=== PATIENT | female | born 1940 | race African-American/Black ===

== ENCOUNTER → 2017-02-03 | Outpatient (CLI) | payer MEDICARE ==
[~2017-02-03] MED LIST: ACETAMINOPHEN650 M1 PO; ALBUTEROL17 GM INH; ALDACTONE; ALDACTONE25 MG PO; AMARYL PO; APRESOLINE PO; ASPIRIN PO; ASPIRIN81 M1 PO; ASPIRIN81 M2 PO; ATIVAN0.5 MG PO; B COMPLEX1 CA1 PO; BACTRIM DS TABL1 TAB; BYSTOLIC5 MG PO; CALAN; CARVEDILOL25 MG PO; CHLOROTHIAZIDE; CHLOROTHIAZIDE500 MG PO; CLARITIN10 MG PO; COREG6.25 MG PO; COUMADIN; COUMADIN PO; COUMADIN3 MG PO; COUMADIN6 MG PO; CRESTOR PO; DELTASONE20 MG PO; DOXYCYCLINE; DULCOLAX5 MG PO; ECOTRIN325 MG PO; ESCITALOPRAM OX10 MG PO; FERROUS SULFATE PO; FISH OIL 1,0001 CAP PO; FLAX SEED OIL1000 M1 PO; FLOMAX0.4 M1 PO; FUROSEMIDE40 MG PO; GABAPENTIN100 M1 PO; GLUCOPHAGE XR500 MG; GLUCOPHAGE500 M1 PO; GLUMETZA1000 MG/BO PO; HCTZ PO; HUMULIN 70/30 V10 ML SUBQ; HUMULIN 70100 UNIT/1 SQ; HUMULIN 70100 UNIT/1 SUBQ; HYDRALAZINE HCL25 MG PO; HYDROCHLOROTHIA25 MG PO; HYDROCHLOROTHIAZIDE PO; IMDUR-ER60 MG PO; IRON325 ( 65 ) PO; IRON325 ( 652 PO; KEPPRA500 M2 PO; KEPPRA500 MG PO; LASIX PO; LEVAQUIN750 MG PO; LEXAPRO PO; LISINOPRIL PO; LISINOPRIL20 MG PO; LOPRESSOR PO; LOVENOX; MEDROL4 MG/DOSE- PO; METFORMIN HCL500 M1 PO; METFORMIN PO; MICARDIS PO; MILK OF MAGNESIA PO; MINOXIDIL PO; MOBIC PO; MULTI-VITAMIN1 TAB PO; NAPROSYN500 MG PO; NAPROXEN PO; NIACIN PO; NORCO 5/325 TAB1 TAB PO; NORCO1 TAB 10/3 PO; NORVASC PO; NORVASC10 MG PO; NORVASC2.5 MG PO; NOVOLIN 70/30 V10 M1 SUBQ; NOVOLIN 70/30 V10 ML; NOVOLIN R100 UNITS/ INJ; OMEPRAZOLE40 MG PO; OMNICEF PO; PATIENT'S PHARMACY; PRAVACHOL PO; PRAVASTATIN SOD40 MG PO; PRILOSEC PO; PRINIVIL40 MG PO; PROTONIX PO; QUESTRAN POWDE378 GM PO; SENNA S TABLET1 TAB PO; SIMVASTATIN20 MG PO; SIMVASTATIN40 MG PO; SOD BICARBONATE PO; SODIUM BICARBO650 MG PO; VERAPAMIL HCL240 M2 PO; VICODIN; VICODIN 5-3001 EACH PO; VICODIN PO; VIT B-12 SUBQ; VITAMIN C500 M1 PO; VITAMIN C500 M5 PO; VITAMIN D PO; WELCHOL3.75 GM PO; ZESTRIL10 M1 PO; ZESTRIL40 MG PO; ZITHROMAX1 G/PKT PO; ZOCOR20 MG PO; [UNRECOGNIZED DRUG - OTHER] PO
[2017-02-03 10:14] LABS: HEMATOCRIT 33.7 % (35.0-45.0); HEMOGLOBIN 10.3 gm/dL (12.0-16.0); MEAN CELL VOLUME 76.6 FL (83-96); MEAN CORPUSCULAR HEMOGLOBIN 23.4 PG (28-34); MEAN CORPUSCULAR HGB CONC 30.6 g/dL (30-36); MEAN PLATELET VOLUME 9.9 FL (6.5-11.5); RED BLOOD COUNT 4.4 X10e (3.90-5.30); RED CELL DISTRIBUTION WIDTH 15.9 % (11.0-15.5); WHITE BLOOD COUNT 7.5 X10e3 (4.0-10.5)
[2017-02-03 10:34] LABS: BUN/CREATININE RATIO 21.66; CALCIUM SERUM 9.1 mg/dL (8.4-10.2); CREATININE SERUM 1.2 mg/dL (0.6-1.4); GLOM FILT RATE Estimated 56.5 mL/min (>60); POTASSIUM 3.9 mmol/L (3.5-5.1)
== END | disposition home or self-care (01) ==
LOC: CSSDAY 09:21
PROVIDERS: Internal Medicine Nephrology
DX: N18.3 Chronic kidney disease, stage 3 (moderate) (principal); D63.1 Anemia in chronic kidney disease; Z79.899 Other long term (current) drug therapy
CPT/HCPCS: 36415; 80048; 85027; 96372; J0881

== ENCOUNTER → 2017-02-17 | Outpatient (CLI) | payer MEDICARE ==
[2017-02-17 09:57] LABS: HEMATOCRIT 35.2 % (35.0-45.0); HEMOGLOBIN 10.8 gm/dL (12.0-16.0)
== END | disposition home or self-care (01) ==
LOC: CSSDAY 09:23
PROVIDERS: Internal Medicine Nephrology
DX: N18.3 Chronic kidney disease, stage 3 (moderate) (principal); D63.1 Anemia in chronic kidney disease; Z79.899 Other long term (current) drug therapy
CPT/HCPCS: 36415; 85014; 85018; 96372; J0881

== ENCOUNTER → 2017-03-03 | Outpatient (CLI) | payer MEDICARE ==
[2017-03-03 10:41] LABS: HEMATOCRIT 36.4 % (35.0-45.0); HEMOGLOBIN 11.3 gm/dL (12.0-16.0); MEAN CELL VOLUME 75.9 FL (83-96); MEAN CORPUSCULAR HEMOGLOBIN 23.6 PG (28-34); MEAN CORPUSCULAR HGB CONC 31.2 g/dL (30-36); MEAN PLATELET VOLUME 9.3 FL (6.5-11.5); RED BLOOD COUNT 4.79 X10e (3.90-5.30); RED CELL DISTRIBUTION WIDTH 16.5 % (11.0-15.5); WHITE BLOOD COUNT 6.4 X10e3 (4.0-10.5)
[2017-03-03 11:50] LABS: ALBUMIN SERUM 3.9 g/dL (3.5-5.0); BILIRUBIN,TOTAL 0.5 mg/dL (0.2-2.0); BUN/CREATININE RATIO 17.5; CALCIUM SERUM 9.6 mg/dL (8.4-10.2); CREATININE SERUM 1.2 mg/dL (0.6-1.4); GLOM FILT RATE Estimated 51.6 mL/min (>60); POTASSIUM 4.4 mmol/L (3.5-5.1); PROTEIN TOTAL SERUM 6.9 g/dL (6.0-8.3); URIC ACID 7.9 mg/dL (2.6-7.2)
[2017-03-06 09:17] LABS: CALCIUM (PTHINTACT) 9.4 mg/dL (8.6-10.4)
== END | disposition home or self-care (01) ==
LOC: CSSDAY 09:50
PROVIDERS: Internal Medicine Nephrology
DX: N18.3 Chronic kidney disease, stage 3 (moderate) (principal); D63.1 Anemia in chronic kidney disease; Z51.81 Encounter for therapeutic drug level monitoring; Z79.899 Other long term (current) drug therapy
CPT/HCPCS: 36415; 80053; 82310; 82728; 83540; 83550; 83970; 84100; 84550; 85027; J0881

== ENCOUNTER → 2017-03-14 | Day surgery (SDC) | payer MEDICARE ==
--- NOTE | ~2017-03-14 | OR ---
Unit #: [id number] #: [id number] Patient: MADISON SIDDIQI [id number] [address] [place], [place] [address] [id number] O MR#: [id number] NAME: MADISON SIDDIQI ROOM: Date of Procedure: 03/14/2017 Admission Date: 03/14/2017 Surgeon: Stanley England M.D. : 1940 Attending Physician: Stanley England M.D. Primary Care Physician: Gutierrez Douglas M.D. OPERATIVE REPORT PRIMARY CARE PHYSICIAN Gutierrez Douglas M.D. PREOPERATIVE DIAGNOSIS The patient has history of presence of blood in the stool. She therefore come for a colonoscopy. PROCEDURES PERFORMED Colonoscopy and biopsies. POSTOPERATIVE DIAGNOSES The patient had 2 sessile polyps, these were 3 to 5 mm each. Both were present in the cecum adjacent to appendiceal orifice and were removed using cold biopsy forceps. Rest of the examination up to cecum and terminal ileum was normal. The quality of the prep was excellent. RECOMMENDATIONS Follow up results of polyp histology and consider repeat examination of the colon in 5 years. SEDATION USED MAC. DESCRIPTION OF PROCEDURE Following detailed explanation of the potential risks and complications of a colonoscopy, namely perforation, bleeding, and complications related to sedation, the patient was brought to GI lab and laid in the left lateral decubitus position. A digital rectal examination was performed, which was normal. Lubricated tip of the Olympus video colonoscope was inserted through the anus and advanced under direct vision. The scope was advanced and passed up to sigmoid into descending colon. No diverticula were seen in this area. The scope tip was then navigated all the way up to cecum with visualization of the ileocecal valve and the appendiceal orifice. Preparation was excellent with good visualization and photodocumentation was obtained. Last several inches of the terminal ileum also visualized after intubation of the ileocecal valve and appeared normal. Successive segments of the colonic mucosa were examined upon withdrawal. The patient was noted to have 2 small diminutive sessile polyps in the cecum. Both were removed using cold biopsy forceps. No additional polyps noted. The patient did not have any diverticulosis nor any hemorrhoids. The scope was then withdrawn and the patient returned to the recovery area. She tolerated the procedure without any postprocedure complications. Unit #: [id number] #: [id number] Patient: MADISON SIDDIQI Dictated by... Renetta Pena/anila TD: 03/15/2017 01:49 JOB #: [id number] CC: Jaiden Wesley M.D. OPERATIVE REPORT Page 1 of 1 X Stanley England MD PROCEDURE OPERATIVE NOTE
== END | disposition home or self-care (01) ==
LOC: COPS 10:33
DX: D12.0 Benign neoplasm of cecum (principal); R19.5 Other fecal abnormalities
CPT/HCPCS: 82947; 88305; J0360; J2250

== ENCOUNTER → 2017-03-17 | Outpatient (CLI) | payer MEDICARE, BC ==
[2017-03-17 11:23] LABS: HEMATOCRIT 36.7 % (35.0-45.0); HEMOGLOBIN 11.1 gm/dL (12.0-16.0)
== END | disposition home or self-care (01) ==
LOC: CSSDAY 10:25
PROVIDERS: Internal Medicine Nephrology
DX: D63.1 Anemia in chronic kidney disease (principal); N18.3 Chronic kidney disease, stage 3 (moderate); Z51.81 Encounter for therapeutic drug level monitoring; Z79.899 Other long term (current) drug therapy
CPT/HCPCS: 36415; 85014; 85018; J0881

== ENCOUNTER → 2017-03-31 | Outpatient (CLI) | payer MEDICARE, BC ==
[2017-03-31 10:45] LABS: HEMATOCRIT 33.3 % (35.0-45.0); HEMOGLOBIN 10.5 gm/dL (12.0-16.0); MEAN CELL VOLUME 74.2 FL (83-96); MEAN CORPUSCULAR HEMOGLOBIN 23.3 PG (28-34); MEAN CORPUSCULAR HGB CONC 31.4 g/dL (30-36); MEAN PLATELET VOLUME 10.3 FL (6.5-11.5); RED BLOOD COUNT 4.49 X10e (3.90-5.30); RED CELL DISTRIBUTION WIDTH 15.4 % (11.0-15.5); WHITE BLOOD COUNT 6.9 X10e3 (4.0-10.5)
[2017-03-31 13:14] LABS: BUN/CREATININE RATIO 20.71; CALCIUM SERUM 9.1 mg/dL (8.4-10.2); CREATININE SERUM 1.4 mg/dL (0.6-1.4); GLOM FILT RATE Estimated 42.8 mL/min (>60); POTASSIUM 4.1 mmol/L (3.5-5.1)
== END | disposition home or self-care (01) ==
LOC: CLAB 10:00
PROVIDERS: Internal Medicine Nephrology
DX: N18.3 Chronic kidney disease, stage 3 (moderate) (principal); D63.1 Anemia in chronic kidney disease; Z79.899 Other long term (current) drug therapy
CPT/HCPCS: 36415; 80048; 85027; 96372; J0881

== ENCOUNTER → 2017-04-14 | Outpatient (CLI) | payer MEDICARE, BC ==
[2017-04-14 10:51] LABS: HEMATOCRIT 34.3 % (35.0-45.0); HEMOGLOBIN 10.6 gm/dL (12.0-16.0)
== END | disposition home or self-care (01) ==
LOC: CSSDAY 08:00
PROVIDERS: Internal Medicine Nephrology
DX: N18.3 Chronic kidney disease, stage 3 (moderate) (principal); D63.1 Anemia in chronic kidney disease; Z51.81 Encounter for therapeutic drug level monitoring; Z79.899 Other long term (current) drug therapy
CPT/HCPCS: 36415; 85014; 85018; 96372; J0881

== ENCOUNTER → 2017-05-01 | Outpatient (CLI) | payer MEDICARE, BC ==
[2017-05-01 11:01] LABS: HEMOGLOBIN 11.3 gm/dL (12.0-16.0); MEAN CELL VOLUME 76.3 FL (83-96); MEAN CORPUSCULAR HEMOGLOBIN 23.3 PG (28-34); MEAN CORPUSCULAR HGB CONC 30.6 g/dL (30-36); MEAN PLATELET VOLUME 9.7 FL (6.5-11.5); RED BLOOD COUNT 4.86 X10e (3.90-5.30); RED CELL DISTRIBUTION WIDTH 15.9 % (11.0-15.5); WHITE BLOOD COUNT 6.5 X10e3 (4.0-10.5)
== END | disposition home or self-care (01) ==
LOC: CSSDAY 04-29 10:30
PROVIDERS: Internal Medicine Nephrology
DX: N18.3 Chronic kidney disease, stage 3 (moderate) (principal); D63.1 Anemia in chronic kidney disease
CPT/HCPCS: 36415; 85027; J0881

== ENCOUNTER → 2017-05-15 | Outpatient (CLI) | payer MEDICARE, BC ==
[2017-05-15 11:14] LABS: HEMATOCRIT 35.7 % (35.0-45.0); HEMOGLOBIN 11.2 gm/dL (12.0-16.0); MEAN CORPUSCULAR HEMOGLOBIN 23.5 PG (28-34); MEAN CORPUSCULAR HGB CONC 31.4 g/dL (30-36); MEAN PLATELET VOLUME 10.4 FL (6.5-11.5); RED BLOOD COUNT 4.77 X10e (3.90-5.30)
[2017-05-15 11:35] LABS: BUN/CREATININE RATIO 15.45; CALCIUM SERUM 9.2 mg/dL (8.4-10.2); CREATININE SERUM 1.1 mg/dL (0.6-1.4); GLOM FILT RATE Estimated 57.3 mL/min (>60); POTASSIUM 3.7 mmol/L (3.5-5.1)
== END | disposition home or self-care (01) ==
LOC: CSSDAY 10:15
PROVIDERS: Internal Medicine Nephrology
DX: N18.2 Chronic kidney disease, stage 2 (mild) (principal); D63.1 Anemia in chronic kidney disease; Z51.81 Encounter for therapeutic drug level monitoring; Z79.899 Other long term (current) drug therapy
CPT/HCPCS: 36415; 80048; 85027; J0881

== ENCOUNTER → 2017-05-29 | Outpatient (CLI) | payer MEDICARE, BC ==
[2017-05-29 11:24] LABS: HEMATOCRIT 35.4 % (35.0-45.0); HEMOGLOBIN 10.8 gm/dL (12.0-16.0)
== END | disposition home or self-care (01) ==
LOC: CSSDAY 10:52
PROVIDERS: Internal Medicine Nephrology
DX: N18.3 Chronic kidney disease, stage 3 (moderate) (principal); D63.1 Anemia in chronic kidney disease; Z79.899 Other long term (current) drug therapy
CPT/HCPCS: 36415; 85014; 85018; 96372; J0881

== ENCOUNTER 2017-06-12 10:31 | Emergency (ER) | payer MEDICARE, BC ==
--- NOTE | ~2017-06-12 | EKG ---
PATIENT: MADISON SIDDIQI UNIT #: [id number] Ventricular Rate: 63 BPM Atrial Rate: 63 BPM P-R Interval: 156 ms QRS Duration: 92 ms Q-T Interval: 432 ms QTC Calculation(Bezet): 442 ms P [place]: 39 degrees Calculated R [place]: 16 degrees Calculated T [place]: -10 degrees Diagnosis Line: Normal sinus rhythm Diagnosis Line: T wave abnormality, consider inferior ischemia Diagnosis Line: Abnormal ECG Diagnosis Line: When compared with ECG of 15-SEP-2016 15:11, Diagnosis Line: No significant change was found Diagnosis Line: Confirmed by RICHAR BERG MD ([id number]) on 06/13/2017 Diagnosis Line: 10:54:02 AM INTERPRETING MD: MORENA SOUZA
--- NOTE | ~2017-06-12 | CT71 ---
[facility] A Service of [facility] RADIOLOGY TEXT RESULTS PATIENT: MADISON SIDDIQI LOCATION: [facility] : [birth year] UNIT #: [id number] AGE: [address]: Ochoa Johnson MD SEX: F ORDER DR: [id number] [facility] [address] [place], [place] [address] [id number] E MR#: [id number] Acc #: [id number] NAME: MADISON SIDDIQI : 1940 SEX: F STUDY DATE/TIME: 06/12/2017 11:27 UNIT: [facility] ROOM: STUDY DESCRIPTION: CT Head Wo Contrast Attending Physician: Bruce Johnson M.D. Ordering Physician: Ed William Culver M.D. Primary Care Physician: Gutierrez Douglas M.D. MEDICAL IMAGING REPORT This report is preliminary unless electronic signature is present EXAM CT head without contrast 06/12/2017. HISTORY Dizziness this a.m. COPD, stroke, diabetes, hypertension. TECHNIQUE CT head performed skull base through vertex without intravenous contrast. This CT exam was performed with one or more of the following radiation dose reduction techniques: automatic exposure control, adjustment of mA and/or kV according to patient size, and iterative reconstruction. COMPARISON 02/13/2015. FINDINGS Brainstem unremarkable. Cerebellum and cerebral hemispheres show normal dahl matter-white matter differentiation. No hemorrhage. No evidence of acute cortical ischemia. Periventricular and deep white matter tract probable sequelae of chronic microvascular ischemia. More pronounced than in 2015. Chronic lacunar infarcts in the left putamen, globus pallidus, and anterior limb, left internal capsule. There is a chronic-appearing right thalamic lacunar infarct. The right thalamic lacunar infarct has developed in the interval from 2014. There is no clearly acute basal ganglia abnormality. The ventricles, cisterns, and sulci show generalized enlargement, slightly more pronounced than in 2015 and consistent with mild to moderate generalized atrophy. Extensive cavernous carotid arterial calcifications. No intra- or extraaxial mass effect or abnormal intracranial fluid collection. The intraorbital soft tissues are unremarkable in their visualized extent. The visualized paranasal sinuses and mastoid air cells show minimal mucosal thickening, ethmoid and sphenoid sinuses. No indication of acute sinusitis. No acute bony abnormality. [facility] A Service of [facility] RADIOLOGY TEXT RESULTS PATIENT: MADISON SIDDIQI LOCATION: [facility] : 42 UNIT #: [id number] AGE: [address]: Ochoa Johnson MD SEX: F ORDER DR: IMPRESSION 1. No clearly acute abnormality is seen in the brain. If the patient has ongoing neurologic symptoms, consider follow up imaging, preferably with MRI, if the patient is a candidate. 2. Chronic changes include following: Periventricular and deep white matter tract probable sequelae of chronic microvascular ischemia. This has progressed in the interval from 2015. Left basal ganglia lacunar infarcts, as above, unchanged from 2015. There is a chronic-appearing right thalamic lacunar infarct, new compared to 2015. Mild to moderate generalized atrophy slightly progressed in the interval from prior study. Vascular calcifications. Dictated by... Celestino Ames M.D. THIS IS AN ELECTRONICALLY VERIFIED REPORT Celestino Ames M.D. at 06/13/2017 7:11 PM Lisa TD: 06/12/2017 13:58 JOB #: [id number] MEDICAL IMAGING REPORT Page 1 of 1 COPY
[~2017-06-12 10:31] MED LIST changes: -ALBUTEROL17 GM INH; -DELTASONE20 MG PO; -OMNICEF PO
[2017-06-12 11:29] LABS: BASOPHIL# 0.1 X10e3 (0-0.3); BASOPHIL% 0.7 % (0-2.5); EOSINOPHIL# 0.2 X10e3 (0-0.7); HEMATOCRIT 36.4 % (35.0-45.0); HEMOGLOBIN 11.3 gm/dL (12.0-16.0); LYMPHOCYTE# 1.6 X10e3 (1.0-3.5); LYMPHOCYTE% 18.9 % (17.0-45.0); MEAN CELL VOLUME 75.6 FL (83-96); MEAN CORPUSCULAR HEMOGLOBIN 23.4 PG (28-34); MEAN PLATELET VOLUME 9.2 FL (6.5-11.5); MONOCYTE# 0.6 X10e3 (0-1.0); MONOCYTE% 7.7 % (3.0-12.0); NEUTROPHIL# 5.8 X10e3 (1.5-7.1); NEUTROPHIL% 69.7 % (40-75); PLATELET COUNT 227 X10e3 (140-420); RED BLOOD COUNT 4.82 X10e (3.90-5.30); WHITE BLOOD COUNT 8.4 X10e3 (4.0-10.5)
[2017-06-12 11:31] LABS: DIFF IND NO
[2017-06-12 11:32] LABS: POC - CKMB <1.0 ng/mL (0.0-7.9); POC - TROPONIN <0.05 ng/mL (<=0.05)
[2017-06-12 11:42] LABS: INR 1.9; PARTIAL THROMBOPLASTIN TIME 33.9 SECONDS (23.5-31.3); PROTHROMBIN TIME (PATIENT) 20.6 SECONDS (10.0-11.7)
[2017-06-12 11:54] LABS: CALCIUM SERUM 8.9 mg/dL (8.4-10.2); GLOM FILT RATE Estimated 63.9 mL/min (>60); POTASSIUM 3.5 mmol/L (3.5-5.1)
== END 2017-06-12 15:15 | disposition home or self-care (01) ==
LOC: CED 10:31
PROVIDERS: Emergency Medicine
DX: I16.0 Hypertensive urgency (principal); J44.9 Chronic obstructive pulmonary disease, unspecified; G40.909 Epilepsy, unspecified, not intractable, without status epilepticus; F17.210 Nicotine dependence, cigarettes, uncomplicated; D64.9 Anemia, unspecified; Z88.0 Allergy status to penicillin; Z88.1 Allergy status to other antibiotic agents; Z88.5 Allergy status to narcotic agent; E11.9 Type 2 diabetes mellitus without complications
CPT/HCPCS: 36415; 70450; 80048; 80053; 82310; 82553; 82728; 82947; 83540; 83550; 83970; 84100; 84484; 84550; 85014; 85018; 85025; 85610; 85730; 93005; 96374; 99284; J0881

== ENCOUNTER 2017-07-30 16:58 | Inpatient (IN) | payer MEDICARE, BC ==
[~2017-07-30] VITALS: Ht 160 cm; Wt 79.8 kg
--- NOTE | ~2017-07-30 | CR72 ---
[facility] A Service of [facility] RADIOLOGY TEXT RESULTS PATIENT: MADISON SIDDIQI LOCATION: [place] [address] : [birth year] UNIT #: [id number] AGE: [address]: Alesia Thrasher MD SEX: F ORDER DR: [id number] [place] [address] [place], [place] [address] [id number] E MR#: [id number] Acc #: [id number] NAME: MADISON SIDDIQI : 1940 SEX: F STUDY DATE/TIME: 07/30/2017 19:31 UNIT: [facility] ROOM: STUDY DESCRIPTION: CR Chest Single View Portable Attending Physician: Mary Florian M.D. Referring Physician: Gutierrez Douglas M.D. Ordering Physician: Mary Florian M.D. Primary Care Physician: Gutierrez Douglas M.D. MEDICAL IMAGING REPORT This report is preliminary unless electronic signature is present EXAM AP portable chest. DATE 07/30/2017 HISTORY Cough and chest pain for 3 days. COMPARISON AP portable chest, 09/15/2016. FINDINGS Heart size is borderline enlarged but stable. Pulmonary vascular distribution is normal. No pleural effusion or pneumothorax. Clear lungs. IMPRESSION Stable borderline cardiac enlargement. No acute chest findings. No significant change compared to 09/15/2016. Dictated by... Dianna Veliz M.D. THIS IS AN ELECTRONICALLY VERIFIED REPORT Dianna Veliz M.D. at 07/31/2017 12:[address] [facility]/rosalie TD: 07/30/2017 22:30 JOB #: [id number] MEDICAL IMAGING REPORT [facility] A Service of [facility] RADIOLOGY TEXT RESULTS PATIENT: MADISON SIDDIQI LOCATION: [place] [address] : [birth year] UNIT #: [id number] AGE: [address]: Alesia Thrasher MD SEX: F ORDER DR: Page 1 of 1 COPY
--- NOTE | ~2017-07-30 | CR63 ---
[facility] A Service of [facility] & [facility] RADIOLOGY TEXT RESULTS PATIENT: MADISON SIDDIQI LOCATION: [facility] [id number] : [birth year] UNIT #: [id number] AGE: [address]: Alesia Thrasher MD SEX: F ORDER DR: [id number] [facility] [address] [facility]. [place], [place] [address] [id number] I MR#: [id number] Acc #: [id number] NAME: MADISON SIDDIQI : 1940 SEX: F STUDY DATE/TIME: 08/01/2017 10:04 UNIT: [facility] ROOM: 2 STUDY DESCRIPTION: CR Chest 2 View Attending Physician: Alesia Thrasher M.D. Referring Physician: Gutierrez Douglas M.D. Ordering Physician: Gogo Faulkner M.D. Primary Care Physician: Gutierrez Douglas M.D. MEDICAL IMAGING REPORT This report is preliminary unless electronic signature is present EXAM PA and lateral chest 08/01/2017 INDICATION Cough, chest pain for 5 days. COMPARISON 07/30/2017. FINDINGS A portable view of the chest was obtained. The heart size and vascularity are normal. The lungs are clear. The bones are unremarkable. IMPRESSION No active disease. Dictated by... Manuelito Srivastava M.D. THIS IS AN ELECTRONICALLY VERIFIED REPORT Manuelito Srivastava M.D. at 08/01/2017 1:25 PM MIGUEL ANGEL/kimberley TD: 08/01/2017 12:03 JOB #: [id number] MEDICAL IMAGING REPORT Page 1 of 1 COPY
--- NOTE | ~2017-07-30 | HP ---
Unit #: [id number] #: [id number] Patient: MADISON SIDDIQI [id number] [address] [place], [place] [address] [id number] I MR#: [id number] NAME: MADISON SIDDIQI ROOM: 46 Age: 77 Sex: F Admission Date: 07/30/2017 : 1940 Attending Physician: Gogo Faulkner M.D. Referring Physician: Gutierrez Douglas M.D. Primary Care Physician: Gutierrez Douglas M.D. HISTORY AND PHYSICAL CHIEF COMPLAINT Cough, community acquired pneumonia, acute on chronic kidney disease, accelerated hypertension. HISTORY This pleasant 77-year-old female with essential hypertension, chronically anticoagulated for PE, seizure disorder, chronic kidney disease, is admitted for community acquired pneumonia and COPD exacerbation. Patient states that she was well until four days prior to admission when she developed a deep cough productive of green sputum with increasing shortness of breath and wheezing. Has been diaphoretic with the above, with some upper pleuritic chest discomfort. She presented to this emergency department tonight with an O2 saturation of 93% on room air. She has diffuse wheezing on exam. Blood pressure is also noted to be quite elevated. Chest x-ray does not show an active infiltrate but the patient herself clinically has pneumonia. In the ER she was bolused with IV fluids for acute and chronic kidney disease. I am giving IV hydralazine for accelerated hypertension. She was also given Rocephin and Zithromax. PAST MEDICAL HISTORY 1. COPD and obstructive sleep apnea. 2. Pulmonary embolism, chronically anticoagulated. 3. Chronic kidney disease with a baseline creatinine about 1.[address] Rajput. 4. AODM. Patient states that she is diet controlled, she was taken off her insulin recently, although yesterday her Accu-Chek was 230 and she did take some extra insulin at home. 5. Essential hypertension. 6. Hyperlipidemia. 7. GERD. 8. Seizure disorder maintained on Keppra. 9. Previous CVA without residual weakness. 10. GI bleed secondary to AV malformation. 11. Peripheral vascular disease, status post right carotid endarterectomy. 12. Colonoscopy 03/2017, two polyps removed. 13. Knee surgery. 14. BTL. 15. Cardiac catheterization showing normal coronary arteries with ejection fraction of 60% 10/2013. 16. 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 17. Right carotid endarterectomy. Unit #: [id number] #: [id number] Patient: MADISON SIDDIQI ALLERGIES Penicillin. Morphine and Cipro are also on the patient's ER sheet, although I am unsure if she is really allergic to morphine and Cipro. HOME MEDICATIONS Uncertain. Family is to bring in list. I do have a discharge summary from August 2016, which makes mention of sodium bicarb, Flomax, Coumadin, Keppra, Lexapro, Pravachol, Bystolic, Welchol, Norvasc, Dulcolax, other bowel medicines, hydralazine, iron, aspirin, Lortab, Prilosec and B12. FAMILY HISTORY CVA, CAD. SOCIAL HISTORY The patient lives with her daughter. She stopped smoking 35 years ago. Does not drink alcohol. REVIEW OF SYSTEMS Notable for shortness of breath, bronchospasm, diaphoresis, productive cough, PE, chronic kidney disease, diabetes, hypertension, hyperlipidemia, GERD, seizures, previous CVA, above mentioned surgeries. All other systems were reviewed and otherwise negative. PHYSICAL EXAMINATION GENERAL: Pleasant 77-year-old female sounds congested on exam. VITAL SIGNS: Temperature 97.4, pulse 77, respirations 15, blood pressure 137/74, O2 saturation 93% on room air. HEENT: Eyes - PERRLA, extraocular muscles are intact. Pharynx is benign. NECK: Supple without adenopathy or thyromegaly. CHEST: Chest reveals expiratory wheezes throughout. CARDIAC: Normal S1 and S2 without murmur. ABDOMEN: Bowel sounds are present. No hepatosplenomegaly, tenderness or masses. EXTREMITIES: Without clubbing, cyanosis or edema. Pedal pulses are diminished. NEUROLOGIC: Patient is awake, alert, and oriented. Her cranial nerves are intact. She has equal strength throughout but is quite weak on exam. DIAGNOSTIC STUDIES ADMISSION LABS: Hematocrit 37.5, white blood count is 11.7, normal platelet count. [facility] 12 - glucose is 246, BUN 37, creatinine 1.8, up from a BUN of 18, creatinine of 1 in May, sodium 134, chloride 94. Urinalysis - 2+ protein. IMAGING STUDIES: Chest x-ray - borderline cardiomegaly. ASSESSMENT 1. Clinically the patient has community acquired pneumonia. 2. COPD exacerbation. 3. Acute on chronic kidney disease. 4. Accelerated hypertension, although patient's initial blood pressure was thought to be normal, with systolic blood pressure is 211 as I am examining the patient. 5. History of PE anticoagulated. 6. Diet controlled AODM but with hyperglycemia, likely related to current infection. 7. GERD. Unit #: [id number] #: [id number] Patient: MADISON SIDDIQI 8. Seizure disorder. 9. Peripheral vascular disease. PLANS 1. Rocephin and Zithromax pending repeat chest x-ray in the morning and pending culture results. 2. DuoNeb, mucolytics. 3. Blood pressure control. 4. Need home medication list. 5. Daily PT and INR while on antibiotics in the hospital. Dictated by Renetta Lea/ludivina TD: 07/31/2017 05:21 JOB #: [id number] HISTORY AND PHYSICAL Page 1 of 1 X Gogo Faulkner MD HISTORY AND PHYSICAL
--- NOTE | ~2017-07-30 | DS ---
Unit #: [id number] #: [id number] Patient: MADISON XIE [id number] [address] [address] [id number] I MR#: [id number] NAME: MADISON XIE ROOM: 46 Age: 77 Sex: F Admission Date: 07/30/2017 : 1940 Discharge Date: 08/01/2017 Attending Physician: Alesia Thrasher M.D. Referring Physician: Gutierrez Douglas M.D. Primary Care Physician: Gutierrez Douglas M.D. DISCHARGE SUMMARY PRINCIPAL DIAGNOSES 1. Community-acquired pneumonia. 2. Acute exacerbation of chronic obstructive pulmonary disease. 3. Acute kidney injury on chronic kidney disease stage 3, prerenal. Discharge creatinine 1.2. Baseline creatinine approximately 1.3. 4. Hypokalemia. 5. Iron deficiency anemia, chronic. Discharge hemoglobin 9.7. 6. History of pulmonary embolism, maintained on therapeutic Coumadin. 7. Seizure disorder. 8. Hypertension. 9. Hypomagnesemia. 10. Diabetes mellitus type 2, diet controlled. 11. Steroid-induced hyperglycemia. 12. Hyperlipidemia. 13. Gastroesophageal reflux disease. 14. Overweight. 15. Depression. CONSULTANTS None. PROCEDURES IMAGING: Stress x-ray, which was clear. CLINICAL HISTORY AND HOSPITAL COURSE Ms. Xie is a very nice 77-year-old female who presented to the emergency department with shortness of breath and cough. Patient's chest x-ray was found to be unremarkable, but she did have mild leukocytosis and significant wheezing upon examination. She was subsequently admitted. Patient was placed on empiric antibiotics in addition to IV steroids. She has had no associated hypoxia during hospitalization. This morning she feels quite a bit better. Her production of green sputum has decreased, and she has remained afebrile. Plan is to transition her to oral antibiotics, in addition to a short tapering dose of oral steroids. Patient was found to have an elevated creatinine upon presentation, but she received IV fluids, and this had resolved. She was also mildly hypokalemic, but this has been replaced during hospitalization. Patient has a history of PE but has been maintained on therapeutic Coumadin throughout the hospitalization. Unit #: [id number] #: [id number] Patient: MADISON XIE Patient's other chronic conditions remained stable. She was seen by physical therapy who recommended home PT, and patient is agreeable. DISCHARGE CONDITION Stable. DISCHARGE STATUS Discharge to home. DISCHARGE MEDICATIONS 1. Omnicef 300 mg p.o. b.i.d. for 6 days. 2. Prednisone 20 mg tablets, 2 tablets daily for 2 days, then 1 tablet for 2 days, then discontinue. 3. Albuterol inhaler, 1 to 2 puffs every 4 hours p.r.n. for shortness of breath. 4. Sodium bicarbonate 650 mg daily. 5. Flomax 0.4 mg at bedtime. 6. Coumadin 3 mg daily with goal INR of 2 to 3. 7. Keppra 500 mg b.i.d. 8. Lexapro 20 mg daily. 9. Pravachol at home dose at bedtime. 10. Ativan 0.5 mg p.o. daily p.r.n. for anxiety. 11. Bystolic 5 mg b.i.d. 12. Welchol 3.75 grams p.o. daily. 13. Norvasc 10 mg daily. 14. Bisacodyl 5 mg p.o. b.i.d. p.r.n. for constipation. 15. Senna S 1 tablet b.i.d. 16. Milk of Mag 30 mL p.o. daily p.r.n. for constipation. 17. Hydralazine 50 mg b.i.d. 18. Ferrous gluconate 325 mg daily. 19. Aspirin 81 mg daily. 20. Vicodin at home dose 1 tablet daily. 21. Prilosec 20 mg daily. 22. Vitamin D at home dose daily. DISCHARGE INSTRUCTIONS Patient was instructed to follow a constant carb diet. She should monitor Accu-Cheks at home while on steroids, and she is aware her sugars will be high while on steroids. She can increase her activity as tolerated. FOLLOW-UP Patient will follow up with her primary care provider, Dr. Douglas, in 1 week. Needs followup INR at that time, as well. Dictated by... Alesia Thrasher M.D. CLEMENTE/marco antonio TD: 08/04/2017 12:36 JOB #: [id number] Unit #: [id number] #: [id number] Patient: DANIELJOSE DANIELMADISON DISCHARGE SUMMARY Page 1 of 1 X Alesia Thrasher MD X DISCHARGE SUMMARY
[2017-07-30 19:22] LABS: BASOPHIL# 0.1 X10e3 (0-0.3); BASOPHIL% 0.5 % (0-2.5); DIFF IND NO; EOSINOPHIL# 0.2 X10e3 (0-0.7); EOSINOPHIL% 1.8 % (0.0-7.0); HEMATOCRIT 37.5 % (35.0-45.0); HEMOGLOBIN 11.9 gm/dL (12.0-16.0); LYMPHOCYTE# 1.6 X10e3 (1.0-3.5); LYMPHOCYTE% 13.2 % (17.0-45.0); MEAN CELL VOLUME 74.4 FL (83-96); MEAN CORPUSCULAR HEMOGLOBIN 23.6 PG (28-34); MEAN CORPUSCULAR HGB CONC 31.8 g/dL (30-36); MEAN PLATELET VOLUME 9.5 FL (6.5-11.5); MONOCYTE# 0.7 X10e3 (0-1.0); MONOCYTE% 6.3 % (3.0-12.0); NEUTROPHIL# 9.2 X10e3 (1.5-7.1); NEUTROPHIL% 78.2 % (40-75); PLATELET COUNT 229 X10e3 (140-420); RED BLOOD COUNT 5.05 X10e (3.90-5.30); RED CELL DISTRIBUTION WIDTH 14.5 % (11.0-15.5); WHITE BLOOD COUNT 11.7 X10e3 (4.0-10.5)
[2017-07-30 19:37] LABS: INR 2.4; PARTIAL THROMBOPLASTIN TIME 38.7 SECONDS (23.5-31.3); PROTHROMBIN TIME (PATIENT) 25.9 SECONDS (10.0-11.7)
[2017-07-30 19:48] LABS: ALBUMIN SERUM 4.5 g/dL (3.5-5.0); BILIRUBIN, DIRECT 0.1 mg/dL (0.0-0.2); BILIRUBIN,INDIRECT 0.6 mg/dL (0.0-0.9); BILIRUBIN,TOTAL 0.7 mg/dL (0.2-2.0); BUN/CREATININE RATIO 20.55; CALCIUM SERUM 9.5 mg/dL (8.4-10.2); CREATININE SERUM 1.8 mg/dL (0.6-1.4); GLOM FILT RATE Estimated 31.4 mL/min (>60); POTASSIUM 3.6 mmol/L (3.5-5.1); PROTEIN TOTAL SERUM 8.3 g/dL (6.0-8.3)
[2017-07-30 20:10] LABS: URINE SOURCE CLEAN CATCH
[2017-07-30 20:21] LABS: URINE APPEARANCE CLOUDY; URINE BILIRUBIN NEG (NEG); URINE BLOOD NEG (NEG); URINE COLOR YELLOW; URINE GLUCOSE NEG (NEG); URINE KETONE NEG (NEG); URINE LEUKOCYTE ESTERASE NEG (NEG); URINE NITRATE NEG (NEG); URINE PROTEIN 2+ (NEG); URINE SPECIFIC GRAVITY 1.027 (1.003-1.035); URINE UROBILINOGEN 0.2 MG/DL (NEG)
[2017-07-30 20:25] LABS: URBCS1 AUWI 0-2 /[HPF] (0-2); URINE BACTERIA AUWI NEG (NEGATIVE); URINE SQUAMOUS EPITHELIAL CELL FEW /[HPF]; UWBCS1 AUWI 0-2 (0-5)
[2017-07-30 20:42] LABS: CULTURE INDICATED? NO
[2017-07-31 04:01] LABS: BASOPHIL% 0.3 % (0-2.5); DIFF IND NO; EOSINOPHIL# 0.2 X10e3 (0-0.7); EOSINOPHIL% 1.9 % (0.0-7.0); HEMATOCRIT 34.2 % (35.0-45.0); HEMOGLOBIN 10.5 gm/dL (12.0-16.0); LYMPHOCYTE# 1.8 X10e3 (1.0-3.5); LYMPHOCYTE% 14.2 % (17.0-45.0); MEAN CELL VOLUME 73.7 FL (83-96); MEAN CORPUSCULAR HEMOGLOBIN 22.7 PG (28-34); MEAN CORPUSCULAR HGB CONC 30.8 g/dL (30-36); MEAN PLATELET VOLUME 9.9 FL (6.5-11.5); MONOCYTE# 0.8 X10e3 (0-1.0); MONOCYTE% 6.8 % (3.0-12.0); NEUTROPHIL# 9.5 X10e3 (1.5-7.1); NEUTROPHIL% 76.8 % (40-75); PLATELET COUNT 221 X10e3 (140-420); RED BLOOD COUNT 4.64 X10e (3.90-5.30); RED CELL DISTRIBUTION WIDTH 14.1 % (11.0-15.5); WHITE BLOOD COUNT 12.4 X10e3 (4.0-10.5)
[2017-07-31 04:14] LABS: INR 2.6; PROTHROMBIN TIME (PATIENT) 28.8 SECONDS (10.0-11.7)
[2017-07-31 04:20] LABS: BUN/CREATININE RATIO 21.33; CALCIUM SERUM 8.6 mg/dL (8.4-10.2); CREATININE SERUM 1.5 mg/dL (0.6-1.4); GLOM FILT RATE Estimated 39.1 mL/min (>60); POTASSIUM 3.2 mmol/L (3.5-5.1)
[2017-07-31 14:36] LABS: IRON SERUM 25 ug/dL (28-170); TOTAL IRON BINDING CAPACITY 190 ug/dL (269-535); TRANSFERRIN 136 mg/dL (192-382); TRANSFERRIN SATURATION 13 % (20-50)
[2017-08-01 03:45] LABS: HEMATOCRIT 31.1 % (35.0-45.0); HEMOGLOBIN 9.7 gm/dL (12.0-16.0); MEAN CELL VOLUME 74.1 FL (83-96); MEAN CORPUSCULAR HEMOGLOBIN 23.2 PG (28-34); MEAN CORPUSCULAR HGB CONC 31.3 g/dL (30-36); MEAN PLATELET VOLUME 10.1 FL (6.5-11.5); RED BLOOD COUNT 4.2 X10e (3.90-5.30); RED CELL DISTRIBUTION WIDTH 14.3 % (11.0-15.5); WHITE BLOOD COUNT 12.8 X10e3 (4.0-10.5)
[2017-08-01 04:03] LABS: INR 2.3; PROTHROMBIN TIME (PATIENT) 24.9 SECONDS (10.0-11.7)
[2017-08-01 04:22] LABS: BUN/CREATININE RATIO 21.66; CALCIUM SERUM 8.2 mg/dL (8.4-10.2); CREATININE SERUM 1.2 mg/dL (0.6-1.4); GLOM FILT RATE Estimated 51.2 mL/min (>60); MAGNESIUM 1.4 mg/dL (1.6-3.0); POTASSIUM 4.1 mmol/L (3.5-5.1)
[2017-08-01] MEDS ORDERED: ALBUTEROL17 GM INH (12:08)
[2017-08-01] MEDS ORDERED: OMNICEF PO (12:08)
[2017-08-01] MEDS ORDERED: DELTASONE20 MG PO (12:10)
== END 2017-08-01 15:20 | disposition home health service (06) | DRG 190 ==
LOC: CED 16:58 → CEDOF 22:20 → CED 22:25 → C4C 07-31 01:35 → CEDOF 07-31 01:35 → C4C 07-31 08:20
PROVIDERS: Emergency Medicine; Internal Medicine; Nurse Practitioner
DX: J44.0 Chronic obstructive pulmonary disease with (acute) lower respiratory infection (principal); J18.9 Pneumonia, unspecified organism; N17.9 Acute kidney failure, unspecified; N18.3 Chronic kidney disease, stage 3 (moderate); G40.909 Epilepsy, unspecified, not intractable, without status epilepticus; E11.65 Type 2 diabetes mellitus with hyperglycemia; E11.51 Type 2 diabetes mellitus with diabetic peripheral angiopathy without gangrene; J44.1 Chronic obstructive pulmonary disease with (acute) exacerbation; I12.9 Hypertensive chronic kidney disease with stage 1 through stage 4 chronic kidney disease, or unspecified chronic kidney disease; E87.6 Hypokalemia; D50.9 Iron deficiency anemia, unspecified; Z86.711 Personal history of pulmonary embolism; Z79.01 Long term (current) use of anticoagulants; E83.42 Hypomagnesemia; T38.0X5A Adverse effect of glucocorticoids and synthetic analogues, initial encounter; E78.5 Hyperlipidemia, unspecified; K21.9 Gastro-esophageal reflux disease without esophagitis; F32.9 Major depressive disorder, single episode, unspecified; E66.3 Overweight; Z86.73 Personal history of transient ischemic attack (TIA), and cerebral infarction without residual deficits; Z88.0 Allergy status to penicillin; Z87.891 Personal history of nicotine dependence; Z79.82 Long term (current) use of aspirin; Z79.4 Long term (current) use of insulin; Z68.31 Body mass index [BMI] 31.0-31.9, adult
CPT/HCPCS: 36415; 71010; 71020; 80048; 80076; 81003; 82607; 82947; 83540; 83550; 83605; 83735; 85025; 85027; 85610; 85730; 87040; 87070; 87205; 94640; 94760; 96361; 96365; 96366; 96367; 96375; 97161; 97166; 97535; 99285; G8978-GP; G8979-GP; G8980-GP; G8987-GO; G8988-GO; G8989-GO; J0360; J0456; J0696; J1815; J2920; J3475